=== PATIENT | male | born 1955 | race African-American/Black ===

== ENCOUNTER 2016-08-08 17:37 | Emergency (ER) | payer OTHER ==
[~2016-08-08] VITALS: Ht 170.2 cm; Wt 60.3 kg
[~2016-08-08 17:37] MED LIST: COLACE100 MG PO; HYDROCODON-ACE1 EAC7 PO; LEVAQUIN750 MG PO; MAGNESIUM OXID400 MG PO; QUETIAPINE FUM100 MG PO; TRAMADOL HCL50 MG PO; TRIUMEQ TABLET1 EACH PO; ULTRAM50 MG PO; VENLAFAXINE HC150 M1 PO
[2016-08-08 17:43] VITALS: BP 133/97
== END 2016-08-08 18:48 | disposition home or self-care (01) ==
LOC: EME 17:37
DX: S20.219A Contusion of unspecified front wall of thorax, initial encounter (principal); V49.40XA Driver injured in collision with unspecified motor vehicles in traffic accident, initial encounter; J44.9 Chronic obstructive pulmonary disease, unspecified; Z21 Asymptomatic human immunodeficiency virus [HIV] infection status; B19.20 Unspecified viral hepatitis C without hepatic coma; Z85.46 Personal history of malignant neoplasm of prostate; F17.200 Nicotine dependence, unspecified, uncomplicated
CPT/HCPCS: 99281; 99284

== ENCOUNTER 2017-09-26 01:27 | Emergency (ER) | payer OTHER ==
[~2017-09-26] VITALS: Ht 170.2 cm; Wt 68.1 kg
[2017-09-26 02:18] LABS: APPEARANCE CLEAR ((CLEAR)); BILIRUBIN NEGATIVE; BLOOD NEGATIVE; COLOR COLORLESS ((YELLOW)); GLUCOSE (STRIP) NEGATIVE; KETONES NEGATIVE; LEUKOCYTES NEGATIVE; NITRITE NEGATIVE; PROTEIN (STRIP) NEGATIVE; SPECIFIC GRAVITY 1.003 (1.000-1.030); UCUL ADDED? NO; UROBILINOGEN 0.2 MG/DL (0.2-1.0)
[2017-09-26 02:39] VITALS: BP 135/93
== END 2017-09-26 02:39 ==
LOC: EME 01:27
PROVIDERS: Emergency Medicine
DX: F10.129 Alcohol abuse with intoxication, unspecified (principal); R35.0 Frequency of micturition; F17.200 Nicotine dependence, unspecified, uncomplicated
CPT/HCPCS: 81003; 99281; 99284